=== PATIENT | male | born 1950 | race Caucasian/White ===

== ENCOUNTER 2020-11-16 07:55 | Outpatient (CLI) | payer MEDICARE, SELFPAY ==
[2020-11-16 08:53] LABS: Alanine Aminotransferase 39 U/L (16-63); Cholesterol 205 mg/dL (0-200); HDL Direct 59 mg/dL (40-60); LDL Cholesterol Calculated 107 mg/dL (<130); Triglycerides 193 mg/dL (0-150)
== END 2020-11-16 07:56 | disposition home or self-care (01) ==
PROVIDERS: PCP Internal Medicine; Visit Provider Family Medicine
DX: E78.5 Hyperlipidemia, unspecified (principal)
CPT/HCPCS: 36415; 80061; 84460

== ENCOUNTER 2021-04-06 07:04 | Outpatient (CLI) | payer MEDICARE, SELFPAY ==
[2021-04-06 07:24] LABS: Basophils Absolute Auto 0.07 K/mm3 (0.00-0.10); Basophils Percent Auto 1.5 % (0.0-1.0); Eosinophils Absolute Auto 0.33 K/mm3 (0.02-0.50); Hematocrit 44.8 % (37.0-46.0); Hemoglobin 15.4 g/dL (12.4-15.3); Immature Granulocyte Absolute 0.01 K/mm3 (0.00-0.00); Immature Granulocyte Percent A 0.2 % (0.0-0.0); Lymphocytes Absolute Auto 1.21 K/mm3 (1.10-4.50); Lymphocytes Percent Auto 25.6 % (18.0-42.0); Mean Corpuscular HGB Conc 34.4 g/dL (32.0-36.0); Mean Corpuscular Hemoglobin 32.6 pg (27.0-31.0); Mean Corpuscular Volume 94.7 fL (78.0-102.0); Mean Platelet Volume 10.4 fl (8.7-11.0); Monocytes Absolute Auto 0.55 K/mm3 (0.10-0.90); Monocytes Percent Auto 11.6 % (2.0-11.0); Neutrophils Absolute Auto 2.6 K/mm3 (1.7-7.2); Neutrophils Percent Auto 54.1 % (50.0-70.0); Platelet Count Result 205 K/mm3 (150-420); Red Blood Count 4.73 M/mm3 (4.70-6.10); Red Cell Distribution Width 12.9 % (11.6-14.4); White Blood Count 4.7 K/mm3 (4.8-10.8)
[2021-04-06 08:25] LABS: Alanine Aminotransferase 45 U/L (16-63); Albumin Level 4.4 g/dL (3.4-5.0); Alkaline Phosphatase 126 U/L (46-116); Anion Gap 8 mmol/L (8-16); Aspartate Amino Transferase 38 U/L (15-37); Bilirubin,Total 0.5 mg/dL (0.00-1.00); Blood Urea Nitrogen 12 mg/dL (7-18); Calcium 9.2 mg/dL (8.5-10.1); Carbon Dioxide 28 mmol/L (21-32); Chloride 104 mmol/L (98-108); Cholesterol 204 mg/dL (0-200); Estimated Glomerular Filt Rate > 60; Glucose 87 mg/dL (70-99); HDL Direct 51 mg/dL (40-60); LDL Cholesterol Calculated 109 mg/dL (<130); Osmolality Calculated 288 mOsm/kg (285-295); Potassium 4.1 mmol/L (3.5-5.1); Sodium 140 mmol/L (136-145); Thyroid Stimulating Hormone 3.66 uIU/mL (0.36-3.74); Total Protein 7.3 g/dL (6.4-8.2); Triglycerides 220 mg/dL (0-150); Uric Acid 4.3 mg/dL (3.5-7.2)
[2021-04-06 18:55] LABS: Prostate Specific Antigen 2.2 ng/mL (< OR = 4.0)
[2021-04-11 08:12] LABS: Ferritin 281 ng/mL (26-388); GGT 66 U/L (15-85)
[2021-04-13 14:45] LABS: Hepatitis A Antibody IgM Nonreactive; Hepatitis B Core Antibody Nonreactive (Nonreactive); Hepatitis B Surface Antigen Nonreactive (Nonreactive); Hepatitis C Signal to Cutoff 0.01 ratio (<1.00); Hepatitis C Virus Antibody Nonreactive (Nonreactive)
== END 2021-04-06 07:05 | disposition home or self-care (01) ==
LOC: CHSLAB 07:07
PROVIDERS: PCP Internal Medicine; Visit Provider Internal Medicine
DX: E78.5 Hyperlipidemia, unspecified (principal); M10.9 Gout, unspecified; Z12.5 Encounter for screening for malignant neoplasm of prostate; Z00.00 Encounter for general adult medical examination without abnormal findings; R74.9 Abnormal serum enzyme level, unspecified; R94.5 Abnormal results of liver function studies
CPT/HCPCS: 36415; 80053; 80061; 80074; 82728; 82977; 84153; 84443; 84550; 85025; G0103

== ENCOUNTER 2021-04-11 07:06 | Outpatient (CLI) | payer MEDICARE, SELFPAY ==
[2021-04-11 07:14] LABS: Appearance Urine Clear (Clear); Bilirubin Urine Negative (Negative); Blood Urine Negative (Negative); Color Urine Light Yellow (Yellow); Glucose Urine UA Negative (Negative); Ketones Urine Negative (Negative); Leukocyte Esterase Ur Negative (Negative); Nitrate Urine Negative (Negative); Protein Urine Negative (Negative); Urobilinogen Urine 0.2 mg/dL (0.2-1.0); pH Urine 5.5 (5.0-8.0)
[2021-04-11 07:15] LABS: Add Urine Microscopic? NO
== END 2021-04-11 07:07 | disposition home or self-care (01) ==
LOC: CHSLAB 07:08
PROVIDERS: PCP Internal Medicine; Visit Provider Internal Medicine
DX: E78.5 Hyperlipidemia, unspecified (principal); M10.9 Gout, unspecified; Z00.00 Encounter for general adult medical examination without abnormal findings
CPT/HCPCS: 81003

== ENCOUNTER 2021-10-29 07:00 | Outpatient (CLI) | payer MEDICARE, SELFPAY ==
[2021-10-29 07:55] LABS: Alanine Aminotransferase 46 U/L (16-63); Albumin Level 4.3 g/dL (3.4-5.0); Alkaline Phosphatase 138 U/L (46-116); Anion Gap 8 mmol/L (8-16); Aspartate Amino Transferase 31 U/L (15-37); Bilirubin,Total 0.5 mg/dL (0.00-1.00); Blood Urea Nitrogen 12 mg/dL (7-18); Calcium 9.1 mg/dL (8.5-10.1); Carbon Dioxide 29 mmol/L (21-32); Chloride 101 mmol/L (98-108); Cholesterol 157 mg/dL (0-200); Estimated Glomerular Filt Rate > 60; GGT 41 U/L (15-85); Glucose 102 mg/dL (70-99); HDL Direct 46 mg/dL (40-60); LDL Cholesterol Calculated 83 mg/dL (<130); Osmolality Calculated 285 mOsm/kg (285-295); Potassium 4.1 mmol/L (3.5-5.1); Sodium 138 mmol/L (136-145); Total Protein 7.1 g/dL (6.4-8.2); Triglycerides 142 mg/dL (0-150)
== END 2021-10-29 07:01 | disposition home or self-care (01) ==
LOC: CHSLAB 07:02
PROVIDERS: PCP Internal Medicine; Visit Provider Internal Medicine
DX: E78.5 Hyperlipidemia, unspecified (principal)
CPT/HCPCS: 36415; 80053; 80061; 82977

== ENCOUNTER 2021-10-29 16:24 | Emergency (ER) | payer MEDICARE, SELFPAY ==
--- NOTE | ~2021-10-29 | XR_ITS ---
EXAMINATION: XR ribs LT 2V DATE: 10/29/2021 16:59 INDICATION: Left rib pain. Fall. TECHNIQUE: 3 views of the left ribs were obtained. COMPARISON: None. FINDINGS: There is no left-sided pneumonia, pleural effusion, or pneumothorax. The heart size is norm al. There are fractures of left eighth-10th ribs. IMPRESSION: 1. Fractures of left eighth-10th ribs. Reviewed, dictated and finalized at location A.
[2021-10-29 16:35] VITALS: BP 163/87; PULSE 89; RESP 20; TEMP 36.6; O2SAT 100
--- NOTE | 2021-10-29 16:49 | ED.FALL ---
HPI - Fall General Chief Complaint: Fall Stated Complaint: rib, back pain Time Seen by Provider: 10/29/21 16:50 Source: patient Mode of arrival: ambulatory Limitations: no limitations History of Present Illness HPI Narrative: this is a 70-year-old gentleman with some history of hyperlipidemia presents after he was gathering gum balls from a tree and misstepped and fell off his deck causing injury to his left rib area with some mild swelling minimal bruising, the patient did take some Advil earlier prior to presenting to the ER, currently not short of breath no chest pain no abdominal pain no flank pain. complaint: fall Onset (ago): hour(s) Fall from: standing Fall witnessed: yes, by family Place fall occurred: home Loss of consciousness: none Prolonged down time: no Symptoms prior to fall: other ( slipped) Context: tripped/slipped Related Data Home Medications Medication Instructions Recorded Confirmed allopurinol 300 mg PO DAILY 10/29/21 10/29/21 atorvastatin 20 mg PO DAILY 10/29/21 10/29/21 Allergies Allergy/AdvReac Type Severity Reaction Status Date / Time No Known Allergies Allergy Unverified 10/29/21 16:44 Review of Systems Review of Systems: All systems reviewed & are unremarkable except as noted in HPI and below PMFSH Past Medical History Medical History HLD (hyperlipidemia) Exam Const: General: no acute distress Orientation/consciousness: patient oriented x3 HENMT: Head: normal to inspection Eyes: Conjunctivae: conjunctivae normal Pupils: Equal, round and reactive pupils present EOM: EOMs intact bilaterally Neck: Neck: normal visual inspection, no lymphadenopathy and no meningeal signs Chest: Chest palpation & inspection: normal inspection of the chest Resp: Effort & Inspection: normal respiratory effort Auscultation: clear to auscultation bilaterally Cardio: Rate: regular rate Rhythm: regular rhythm GI: Auscultation: normal bowel sounds : Male General Exam: Yes normal external exam Testes: Testes normal Urinary Catheter: Urinary Catheter: patent and draining Back/Spine/Pelvis: Back: no CVA tenderness Skin: General skin exam: normal color Rashes: no rashes Neuro: General: patient oriented x3, moves all extremities, no meningeal signs and no focal motor deficits Extrem: Other: left lower rib pain with palpation Psych: Mental Status: mental status grossly normal Affect: normal affect Course Course Emergency Course: patient received 60mg IM Toradol after reassessment pain level has improved, and x-ray of the left ribs were reviewed with patient and family. Vital Signs Vital signs: Vital Signs Temperature 36.6 C 10/29/21 16:35 Pulse Rate 89 10/29/21 16:35 Respiratory Rate 20 10/29/21 16:35 Blood Pressure 163/87 H 10/29/21 16:35 Pulse Oximetry 100 10/29/21 16:35 Temperature 36.6 C 10/29/21 16:35 Pulse Rate 89 10/29/21 16:35 Respiratory Rate 20 10/29/21 16:35 Blood Pressure 163/87 H 10/29/21 16:35 Pulse Oximetry 100 10/29/21 16:35 Critical Care Time Critical Care Time Critical Care Time: No Discharge Plan Discharge Clinical Impression: Multiple rib fractures Qualifiers: Encounter type: initial encounter Fracture type: closed Laterality: left Qualified Code(s): S22.42XA - Multiple fractures of ribs, left side, initial encounter for closed fracture Patient Disposition: Home, Self-Care Condition: Stable Instructions: Antibiotic Form, Rib Fracture (ED) Additional Instructions: take medicine as prescribed and follow-up primary care physician if symptoms persist or worsen. Prescriptions: New naproxen 500 mg tablet 500 mg PO BID Qty: 14 RF: 0 oxycodone-acetaminophen [Percocet] 5-325 mg tablet 1 tablet PO Q6H PRN (Reason: pain) Qty: 20 RF: 0 No Action atorvastatin 20 mg tablet 20 mg PO DAILY RF: 0 allopurinol 300 mg tablet 300 m
[2021-10-29] MEDS: KETOROLAC (*BKC) 60 MG/2 ML VIAL IM (16:50)
[2021-10-29 18:00] VITALS: BP 104/90; PULSE 103; RESP 20; TEMP 36.7; O2SAT 96
== END 2021-10-29 18:03 | disposition home or self-care (01) ==
PROVIDERS: Emergency Provider Emergency Medicine; PCP Internal Medicine
DX: S22.42XA Multiple fractures of ribs, left side, initial encounter for closed fracture (principal); W17.89XA Other fall from one level to another, initial encounter; E78.5 Hyperlipidemia, unspecified
CPT/HCPCS: 71100; 96372; 99284; J1885

== ENCOUNTER 2022-04-15 07:02 | Outpatient (CLI) | payer MEDICARE, SELFPAY ==
[2022-04-15 07:16] LABS: Basophils Absolute Auto 0.05 K/mm3 (0.00-0.10); Basophils Percent Auto 0.9 % (0.0-1.0); Eosinophils Absolute Auto 0.26 K/mm3 (0.02-0.50); Eosinophils Percent Auto 4.9 % (1.0-6.0); Hematocrit 42.7 % (37.0-46.0); Hemoglobin 14.3 g/dL (12.4-15.3); Immature Granulocyte Absolute 0.02 K/mm3 (0.00-0.00); Immature Granulocyte Percent A 0.4 % (0.0-0.0); Lymphocytes Absolute Auto 1.13 K/mm3 (1.10-4.50); Lymphocytes Percent Auto 21.2 % (18.0-42.0); Mean Corpuscular HGB Conc 33.5 g/dL (32.0-36.0); Mean Corpuscular Hemoglobin 32.2 pg (27.0-31.0); Mean Corpuscular Volume 96.2 fL (78.0-102.0); Mean Platelet Volume 10.9 fl (8.7-11.0); Monocytes Percent Auto 11.3 % (2.0-11.0); Neutrophils Absolute Auto 3.3 K/mm3 (1.7-7.2); Neutrophils Percent Auto 61.3 % (50.0-70.0); Platelet Count Result 179 K/mm3 (150-420); Red Blood Count 4.44 M/mm3 (4.70-6.10); Red Cell Distribution Width 13.2 % (11.6-14.4); White Blood Count 5.3 K/mm3 (4.8-10.8)
[2022-04-15 07:17] LABS: Add Urine Microscopic? NO; Appearance Urine Clear (Clear); Bilirubin Urine Negative (Negative); Blood Urine Negative (Negative); Color Urine Light Yellow (Yellow); Glucose Urine UA Negative (Negative); Ketones Urine Negative (Negative); Leukocyte Esterase Ur Negative (Negative); Nitrate Urine Negative (Negative); Protein Urine Negative (Negative); Specific Grav Ur >= 1.030 (1.010-1.020); Urobilinogen Urine 0.2 mg/dL (0.2-1.0); pH Urine 5.5 (5.0-8.0)
[2022-04-15 08:12] LABS: Alanine Aminotransferase 30 U/L (16-63); Albumin Level 3.9 g/dL (3.4-5.0); Alkaline Phosphatase 135 U/L (46-116); Anion Gap 5 mmol/L (8-16); Aspartate Amino Transferase 27 U/L (15-37); Bilirubin,Total 0.4 mg/dL (0.00-1.00); Blood Urea Nitrogen 11 mg/dL (7-18); Calcium 8.8 mg/dL (8.5-10.1); Carbon Dioxide 30 mmol/L (21-32); Chloride 106 mmol/L (98-108); Cholesterol 132 mg/dL (0-200); Estimated Glomerular Filt Rate > 60; Glucose 103 mg/dL (70-99); HDL Direct 48 mg/dL (40-60); LDL Cholesterol Calculated 65 mg/dL (<130); Osmolality Calculated 291 mOsm/kg (285-295); Potassium 4.3 mmol/L (3.5-5.1); Prostate Specific Antigen 1.9 ng/mL (< OR = 4.0); Sodium 141 mmol/L (136-145); Thyroid Stimulating Hormone 3.81 uIU/mL (0.36-3.74); Total Protein 6.8 g/dL (6.4-8.2); Triglycerides 93 mg/dL (0-150)
== END 2022-04-15 07:03 | disposition home or self-care (01) ==
LOC: CHSLAB 07:04
PROVIDERS: PCP Internal Medicine; Visit Provider Internal Medicine
DX: E78.5 Hyperlipidemia, unspecified (principal); M10.9 Gout, unspecified; Z12.5 Encounter for screening for malignant neoplasm of prostate; Z00.00 Encounter for general adult medical examination without abnormal findings
CPT/HCPCS: 36415; 80053; 80061; 81003; 84153; 84443; 85025; G0103

== ENCOUNTER 2022-10-24 07:10 | Outpatient (CLI) | payer MEDICARE, SELFPAY ==
[2022-10-24 07:30] LABS: Hemoglobin A1C 5.6 % (<5.7)
[2022-10-24 08:23] LABS: Alanine Aminotransferase 46 U/L (16-63); Albumin Level 4.3 g/dL (3.4-5.0); Alkaline Phosphatase 133 U/L (46-116); Anion Gap 7 mmol/L (8-16); Aspartate Amino Transferase 34 U/L (15-37); Bilirubin,Total 0.7 mg/dL (0.00-1.00); Blood Urea Nitrogen 15 mg/dL (7-18); Calcium 9.3 mg/dL (8.5-10.1); Carbon Dioxide 32 mmol/L (21-32); Chloride 105 mmol/L (98-108); Cholesterol 148 mg/dL (0-200); Estimated Glomerular Filt Rate > 60; Free T4 Free Thyroxine 0.86 ng/dL (0.76-1.46); Glucose 95 mg/dL (70-99); HDL Direct 52 mg/dL (40-60); LDL Cholesterol Calculated 86 mg/dL (<130); Osmolality Calculated 298 mOsm/kg (285-295); Potassium 4.7 mmol/L (3.5-5.1); Sodium 144 mmol/L (136-145); Thyroid Stimulating Hormone 2.64 uIU/mL (0.36-3.74); Total Protein 7.2 g/dL (6.4-8.2); Triglycerides 50 mg/dL (0-150)
== END 2022-10-24 07:11 | disposition home or self-care (01) ==
LOC: CHSLAB 07:12
PROVIDERS: PCP Internal Medicine; Visit Provider Internal Medicine
DX: E78.5 Hyperlipidemia, unspecified (principal); R73.9 Hyperglycemia, unspecified; R97.8 Other abnormal tumor markers
CPT/HCPCS: 36415; 80053; 80061; 83036; 84439; 84443; 84481

== ENCOUNTER 2023-04-29 07:11 | Outpatient (CLI) | payer MEDICARE, SELFPAY ==
[2023-04-29 07:28] LABS: Basophils Absolute Auto 0.04 K/mm3 (0.00-0.10); Basophils Percent Auto 0.8 % (0.0-1.0); Eosinophils Percent Auto 3.8 % (1.0-6.0); Hematocrit 41.6 % (37.0-46.0); Hemoglobin 14.3 g/dL (12.4-15.3); Immature Granulocyte Absolute 0.01 K/mm3 (0.00-0.00); Immature Granulocyte Percent A 0.2 % (0.0-0.0); Lymphocytes Absolute Auto 1.18 K/mm3 (1.10-4.50); Lymphocytes Percent Auto 22.6 % (18.0-42.0); Mean Corpuscular HGB Conc 34.4 g/dL (32.0-36.0); Mean Corpuscular Hemoglobin 32.2 pg (27.0-31.0); Mean Corpuscular Volume 93.7 fL (78.0-102.0); Mean Platelet Volume 10.9 fl (8.7-11.0); Monocytes Absolute Auto 0.47 K/mm3 (0.10-0.90); Neutrophils Absolute Auto 3.3 K/mm3 (1.7-7.2); Neutrophils Percent Auto 63.6 % (50.0-70.0); Platelet Count Result 216 K/mm3 (150-420); Red Blood Count 4.44 M/mm3 (4.70-6.10); White Blood Count 5.2 K/mm3 (4.8-10.8)
[2023-04-29 08:11] LABS: Alanine Aminotransferase 43 U/L (16-63); Albumin Level 3.9 g/dL (3.4-5.0); Alkaline Phosphatase 134 U/L (46-116); Anion Gap 6 mmol/L (8-16); Aspartate Amino Transferase 32 U/L (15-37); Bilirubin,Total 0.6 mg/dL (0.00-1.00); Blood Urea Nitrogen 11 mg/dL (7-18); Calcium 9.3 mg/dL (8.5-10.1); Carbon Dioxide 30 mmol/L (21-32); Chloride 107 mmol/L (98-108); Cholesterol 136 mg/dL (0-200); Estimated Glomerular Filt Rate > 60; Glucose 98 mg/dL (70-99); HDL Direct 49 mg/dL (40-60); LDL Cholesterol Calculated 71 mg/dL (<130); Osmolality Calculated 295 mOsm/kg (285-295); Potassium 4.3 mmol/L (3.5-5.1); Sodium 143 mmol/L (136-145); Total Protein 6.4 g/dL (6.4-8.2); Triglycerides 80 mg/dL (0-150); Uric Acid 3.9 mg/dL (3.5-7.2)
== END 2023-04-29 07:12 | disposition home or self-care (01) ==
LOC: CHSLAB 07:13
PROVIDERS: PCP Internal Medicine; Visit Provider Internal Medicine
DX: E78.5 Hyperlipidemia, unspecified (principal); M10.9 Gout, unspecified; Z12.5 Encounter for screening for malignant neoplasm of prostate
CPT/HCPCS: 36415; 80053; 80061; 84153; 84550; 85025; G0103

== ENCOUNTER 2023-04-30 07:07 | Outpatient (CLI) | payer MEDICARE, SELFPAY ==
[2023-04-30 07:16] LABS: Appearance Urine Clear (Clear); Bilirubin Urine Negative (Negative); Blood Urine Trace-Intact (Negative); Color Urine Light Yellow (Yellow); Glucose Urine UA Negative (Negative); Ketones Urine Negative (Negative); Leukocyte Esterase Ur Negative (Negative); Nitrate Urine Negative (Negative); Protein Urine Negative (Negative); Specific Grav Ur 1.015 (1.010-1.020); Urobilinogen Urine 0.2 mg/dL (0.2-1.0)
[2023-04-30 07:21] LABS: Add Urine Microscopic? YES; RBC Urine 0-2 /hpf (0-2); WBC Urine None seen /hpf (0-3)
[2023-04-30 07:22] LABS: Bacteria Urine Rare /hpf
== END 2023-04-30 07:08 | disposition home or self-care (01) ==
LOC: CHSLAB 07:09
PROVIDERS: PCP Internal Medicine; Visit Provider Internal Medicine
DX: E78.5 Hyperlipidemia, unspecified (principal); M10.9 Gout, unspecified
CPT/HCPCS: 81001

== ENCOUNTER 2024-04-28 07:10 | Outpatient (CLI) | payer MEDICARE, SELFPAY ==
[2024-04-28 07:31] LABS: Add Urine Microscopic? NO; Appearance Urine Clear (Clear); Basophils Absolute Auto 0.05 K/mm3 (0.00-0.10); Basophils Percent Auto 0.8 % (0.0-1.0); Bilirubin Urine Negative (Negative); Blood Urine Negative (Negative); Color Urine Light Yellow (Yellow); Eosinophils Absolute Auto 0.23 K/mm3 (0.02-0.50); Eosinophils Percent Auto 3.8 % (1.0-6.0); Glucose Urine UA Negative (Negative); Hematocrit 44.3 % (37.0-46.0); Hemoglobin 14.9 g/dL (12.4-15.3); Immature Granulocyte Absolute 0.02 K/mm3 (0.00-0.00); Immature Granulocyte Percent A 0.3 % (0.0-0.0); Ketones Urine Negative (Negative); Leukocyte Esterase Ur Negative (Negative); Lymphocytes Absolute Auto 1.19 K/mm3 (1.10-4.50); Lymphocytes Percent Auto 19.7 % (18.0-42.0); Mean Corpuscular HGB Conc 33.6 g/dL (32-36); Mean Corpuscular Hemoglobin 31.4 pg (27.0-31.0); Mean Corpuscular Volume 93.5 fL (78.0-102.0); Mean Platelet Volume 10.5 fl (8.7-11.0); Monocytes Absolute Auto 0.59 K/mm3 (0.10-0.90); Monocytes Percent Auto 9.8 % (2.0-11.0); Neutrophils Absolute Auto 3.96 K/mm3 (1.70-7.20); Neutrophils Percent Auto 65.6 % (50.0-70.0); Nitrate Urine Negative (Negative); Platelet Count Result 220 K/mm3 (150-420); Protein Urine Negative (Negative); Red Blood Count 4.74 M/mm3 (4.70-6.10); Red Cell Distribution Width 13.3 % (11.6-14.4); Urobilinogen Urine 0.2 mg/dL (0.2-1.0)
[2024-04-28 08:21] LABS: Alanine Aminotransferase 43 U/L (16-63); Albumin Level 3.9 g/dL (3.4-5.0); Alkaline Phosphatase 149 U/L (46-116); Anion Gap 5 mmol/L (4-12); Aspartate Amino Transferase 34 U/L (15-37); Bilirubin,Total 0.5 mg/dL (0.00-1.00); Blood Urea Nitrogen 10 mg/dL (7-18); Carbon Dioxide 33 mmol/L (21-32); Chloride 103 mmol/L (98-108); Cholesterol 147 mg/dL (0-200); Estimated Glomerular Filt Rate > 60; Glucose 87 mg/dL (70-99); HDL Direct 47 mg/dL (40-60); LDL Cholesterol Calculated 78 mg/dL (<130); Osmolality Calculated 290 mOsm/kg (285-295); Potassium 4.7 mmol/L (3.5-5.1); Prostate Specific Antigen 2.5 ng/mL (< OR = 4.0); Sodium 141 mmol/L (136-145); Thyroid Stimulating Hormone 3.44 uIU/mL (0.36-3.74); Total Protein 6.8 g/dL (6.4-8.2); Triglycerides 112 mg/dL (0-150)
== END 2024-04-28 07:11 | disposition home or self-care (01) ==
PROVIDERS: PCP Internal Medicine; Visit Provider Internal Medicine
DX: E78.5 Hyperlipidemia, unspecified (principal); M10.9 Gout, unspecified; Z12.5 Encounter for screening for malignant neoplasm of prostate
CPT/HCPCS: 36415; 80053; 80061; 81003; 84153; 84443; 85025; G0103

== ENCOUNTER 2024-05-10 07:14 | Outpatient (CLI) | payer MEDICARE, SELFPAY ==
[2024-05-10 08:20] LABS: Alanine Aminotransferase 37 U/L (16-63); Alkaline Phosphatase 162 U/L (46-116); Anion Gap 4 mmol/L (4-12); Aspartate Amino Transferase 25 U/L (15-37); Bilirubin,Total 0.8 mg/dL (0.00-1.00); Blood Urea Nitrogen 11 mg/dL (7-18); Carbon Dioxide 33 mmol/L (21-32); Chloride 104 mmol/L (98-108); Estimated Glomerular Filt Rate > 60; Glucose 95 mg/dL (70-99); Osmolality Calculated 291 mOsm/kg (285-295); Potassium 4.1 mmol/L (3.5-5.1); Sodium 141 mmol/L (136-145); Total Protein 6.8 g/dL (6.4-8.2)
[2024-05-11 11:43] LABS: Hepatitis B Surface Antigen NON-REACTIVE (NON-REACTIVE)
[2024-05-11 11:55] LABS: Hepatitis A Antibody IgM NON-REACTIVE (NON-REACTIVE); Hepatitis B Core Antibody NON-REACTIVE (NON-REACTIVE)
[2024-05-11 12:54] LABS: Hepatitis C Virus Antibody NON-REACTIVE (NON-REACTIVE)
[2024-05-11 15:28] LABS: Ferritin 341 ng/mL (26-388); GGT 34 U/L (15-85)
[2024-05-20 16:32] LABS: Alkaline Phosphatase 142 U/L (35-144)
== END 2024-05-10 07:15 | disposition home or self-care (01) ==
LOC: CHSLAB 07:16
PROVIDERS: PCP Internal Medicine; Visit Provider Internal Medicine
DX: M10.9 Gout, unspecified (principal); R94.5 Abnormal results of liver function studies; D64.9 Anemia, unspecified; Z79.899 Other long term (current) drug therapy
CPT/HCPCS: 36415; 80053; 80074; 82728; 82977; 84075; 84080; 84550

== ENCOUNTER 2024-05-11 07:05 | Outpatient (CLI) | payer MEDICARE, SELFPAY ==
--- NOTE | ~2024-05-11 | US_ITS ---
Limited Abdominal Sonogram: Real-time sonographic imaging of the right upper quadrant was performed. Clinical History: Abnormal LFTs Findings: The liver appears normal with no evidence of mass lesion or bile duct dilatation. Main por elier vein demonstrates normal direction of flow. The gallbladder is well distended, and demonstrates s everal tiny gallbladder wall polyps. The common bile duct measures 2 mm. The visualized pancreas, ao rta, and IVC are unremarkable. Largest right renal cyst measures 9.6 cm in June. Impression: Several tiny gallbladder wall polyps. Reviewed, dictated and finalized at location M. Impression: Several tiny gallbladder wall polyps.
== END 2024-05-11 07:06 | disposition home or self-care (01) ==
LOC: CHSIMG 07:06
PROVIDERS: PCP Internal Medicine; Visit Provider Internal Medicine
DX: R94.5 Abnormal results of liver function studies (principal); M10.9 Gout, unspecified; K82.4 Cholesterolosis of gallbladder; N28.1 Cyst of kidney, acquired
CPT/HCPCS: 76705

== ENCOUNTER 2024-11-01 07:42 | Outpatient (CLI) | payer MEDICARE, SELFPAY ==
--- NOTE | 2024-11-01 07:49 | EST_ITS ---
Patient Info Name: Anatoly Sue Age: 73 years : 1950 Gender: Male Ht: 71 in Wt: 178 lbs BSA: 2.02 m2 HR: 57 bpm BP: 144 / 80 mmHg Heart Rhythm: Bradycardia, Sinus Rhythm Technical Quality: Good Exam Date: 11/01/2024 8:52 AM Exam Location: Echo Lab Patient Status: Outpatient Admit Date: 11/01/2024 Staff Ordering Physician: Vero Carrasquillo Attending Provider: Vero Carrasquillo Exam Type: CA stress adrien w NM Study Info A regadenoson stress test was performed. History/Risk Factors Dyslipidemia: Yes Summary 1. 1. Negative lexiscan stress test for ischemic ST changes by ECG criteria. 2. 2. Baseline hypertension. 3. 3. 3. Nuclear scan to follow and will be reported separately. Please correlate with it. Protocol: LEXISCAN Stress ECG Details Stage: REST Duration (min): 3 min : 26 sec HR (bpm): 58 SBP (mmHg): 144 DBP (mmHg): 80 Stage: REST Duration (min): 14 min : 44 sec HR (bpm): 57 SBP (mmHg): 144 DBP (mmHg): 80 Stage: STAGE 1 Duration (min): 0 min : 25 sec HR (bpm): 57 SBP (mmHg): 144 DBP (mmHg): 80 Stage: RECOVERY Duration (min): 0 min : 34 sec HR (bpm): 76 SBP (mmHg): 144 DBP (mmHg): 80 Stage: RECOVERY Duration (min): 1 min : 34 sec HR (bpm): 97 SBP (mmHg): 144 DBP (mmHg): 80 Stage: RECOVERY Duration (min): 2 min : 34 sec HR (bpm): 93 SBP (mmHg): 157 DBP (mmHg): 81 Stage: RECOVERY Duration (min): 3 min : 34 sec HR (bpm): 86 SBP (mmHg): 157 DBP (mmHg): 81 Stage: RECOVERY Duration (min): 4 min : 34 sec HR (bpm): 82 SBP (mmHg): 151 DBP (mmHg): 81 Stage: RECOVERY Duration (min): 5 min : 34 sec HR (bpm): 75 SBP (mmHg): 156 DBP (mmHg): 91 Stage: RECOVERY Duration (min): 6 min : 4 sec HR (bpm): 74 SBP (mmHg): 153 DBP (mmHg): 94 Rest HR: 57 bpm Peak HR: 102 bpm Rest Sys BP: 144 mmHg Peak Sys BP: 157 mmHg Max Pred HR: 148 bpm % Max Pred HR: 69 % Target HR: 126 bpm Max RPP: 16,014 bpm*mmHg BP Response: Normal blood pressure response Termination Reason: Completed Protocol Cardiac Symptoms: None Total Time: 0 min : 25 sec Rest Lee BP: 80 mmHg Peak Lee BP: 81 mmHg Total Dose: 0.4 mg Resting ECG Sinus bradycardia, anteroseptal infarct, age indeterminate. Stress ECG No abnormal ST/T wave changes. Arrhythmias No arrhythmias were observed during the examination. Report Signatures
--- NOTE | 2024-11-01 13:30 | WPDCARIOSTRE ---
Nuclear Stress Test INDICATIONS Indications: CAD PROCEDURE Procedure Performed: Myocardial Perf Spect-Multi Procedure: Patient underwent a lexiscan stress test and immediately was injected with 31.8 mCi of cardiolyte. Multiple tomographic images were obtained. These are of good quality. There is a small size, mild apical perfusion defect with stress imaging. A separate resting images were obtained after patient was injected with 10.2 mCi of cardiolyte. Multiple tomographic images were obtained. These are of good quality. There is a small size, mild apical perfusion defect with rest imaging. CONCLUSION Conclusion: 1. Myocardial perfusion imaging demonstrating a fixed small size apical perfusion defect which is suggestive of attenuation artifact. 2. No evidence of reversible ischemia. 3. Left ventriculogram demonstrates normal measured ejection fraction of 69% with no wall motion abnormalities. 4. TID score 0.94 is normal.
== END 2024-11-01 07:43 | disposition home or self-care (01) ==
LOC: CHSIMG 07:45
PROVIDERS: PCP Internal Medicine
DX: I25.10 Atherosclerotic heart disease of native coronary artery without angina pectoris (principal)
CPT/HCPCS: 78452; 93017; A9502; J2785

== ENCOUNTER 2024-12-02 07:44 | Outpatient (CLI) | payer MEDICARE, SELFPAY ==
--- NOTE | ~2024-12-02 | CT_ITS ---
CT Scan of the Chest without Contrast: Clinical Indication: Pulmonary nodule Technique: Contiguous sections were acquired throughout the chest without intravenous contrast. Dose reduction technique was used on this scan by utilizing automated exposure control and iterative recon struction technique. The dose-length product (DLP) was 263.87 mGy-cm. Findings: There is no evidence of any significant mediastinal, hilar or axillary lymphadenopathy. Small calcifi ed right hilar lymph nodes are present. Extensive coronary artery calcifications are present. There is no evidence of pleural or pericardial effusion. Calcified right middle lobe granuloma present. Calcified left lower lobe granuloma present. Images through the upper abdomen reveal tiny calcified gallstone. Impression: Evidence of prior granulomatous disease. No suspicious pulmonary nodule. Reviewed, dictated and finalized at [facility]. Impression: Evidence of prior granulomatous disease. No suspicious pulmonary nodule.
== END 2024-12-02 07:45 | disposition home or self-care (01) ==
LOC: CHSIMG 07:47
PROVIDERS: PCP Internal Medicine
DX: R91.1 Solitary pulmonary nodule (principal)
CPT/HCPCS: 71250

== ENCOUNTER 2025-01-11 13:37 | Outpatient (CLI) | payer MEDICARE, SELFPAY ==
--- NOTE | 2025-01-11 13:40 | ECHO_ITS ---
Patient Info Name: Anatoly Sue Age: 74 years : 1950 Gender: Male Ht: 70 in Wt: 180 lbs BSA: 2.02 m2 HR: 71 bpm BP: 152 / 134 mmHg Technical Quality: Good Exam Date: 01/11/2025 1:54 PM Patient Status: O Admit Date: 01/11/2025 Exam Type: CA echo doppler color flow Complete two-dimensional, color flow and Doppler transthoracic echocardiogram is performed. Helix Coil Winder: Jen Gipson Attending Provider: Kilo Gustafson DO Summary 1. Complete two-dimensional, color flow and Doppler transthoracic echocardiogram is performed. 2. Left ventricular chamber dimension is normal. 3. Left ventricular systolic function is normal, estimated at 65-70. 4. The left ventricular diastolic function is grade I diastolic dysfunction. 5. E/e' 15 is elevated. 6. Left atrial chamber dimension is mildly enlarged. 7. There is mild aortic valve sclerosis. 8. There is trace aortic valve regurgitation. 9. The mitral valve has moderately calcified leaflets. 10. There is mild mitral valve regurgitation. 11. There is trace tricuspid valve regurgitation. 12. There is trace pulmonic regurgitation. Left Ventricle E/e' 15 is elevated. Left ventricular chamber dimension is normal. Left ventricular systolic function is normal, estimated at 65-70. The left ventricular diastolic function is grade I diastolic dysfunction. Right Ventricle Right ventricular chamber dimension is normal. Right ventricular systolic function is normal and with normal TAPSE 2.4 cm. Left Atria Left atrial chamber dimension is mildly enlarged. Right Atria Right atrial chamber dimension is normal. Aortic Valve The aortic valve is trileaflet. There is mild aortic valve sclerosis. There is no aortic valve stenosis. There is trace aortic valve regurgitation. Pulmonic Valve There is trace pulmonic regurgitation. Mitral Valve The mitral valve has moderately calcified leaflets. There is no mitral valve stenosis. There is mild mitral valve regurgitation. Tricuspid Valve There is trace tricuspid valve regurgitation. No pulmonary hypertension, estimated pulmonary arterial systolic pressure is 11 mmHg. Pericardium/Pleural There is no pericardial effusion. Inferior Vena Cava Normal inferior vena cava with >50% collapse upon inspiration consistent with normal right atrial pressure, 5 mmHg. Aorta The aortic root size at the sinus of Valsalva is normal. Left Ventricular Outflow Tract Name Value Normal LVOT 2D LVOT Diameter 1.9 cm Pulmonic Valve Name Value Normal PV Doppler PV Peak Velocity 123 cm/s PV Peak Gradient 6 mmHg PV Regurgitation Doppler UT Peak End Diastolic Velocity 69 cm/s Mitral Valve Name Value Normal MV Doppler MV Peak Gradient 7 mmHg MV Mean Gradient 3 mmHg MV Regurgitation Doppler MR Peak Gradient 105 mmHg MV Diastolic Function MV E Peak Velocity 114 cm/s MV A Peak Velocity 131 cm/s MV E/A 0.9 MV Decel Time (PW) 289 ms MV Annular TDI MV E/e' (Septal) 14.7 MV E/e' (Lateral) 16.5 MV E/e' (Average) 15.6 Tricuspid Valve Name Value Normal TV Regurgitation Doppler TR Peak Velocity 120 cm/s TR Peak Gradient 6 mmHg Estimated PAP/RSVP RA Pressure 5 mmHg <=5 PA Systolic Pressure 11 mmHg <36 RV Systolic Pressure 11 mmHg <36 TV Annular TDI TV Lateral Kristi s' Velocity 12.3 cm/s >=9.5 Aortic Valve Name Value Normal AV Doppler AV Peak Velocity 150 cm/s AV Peak Gradient 9 mmHg AV Mean Gradient 5 mmHg AV VTI 29 cm AV Regurgitation 2D LVOT Area 2.7 cm2 Ventricles Name Value Normal LV Dimensions 2D/MM IVS Diastolic Thickness (2D) 0.9 cm 0.6-1.0 LVID Diastole (2D) 4.5 cm 4.2-5.8 LVIW Diastolic Thickness (2D) 0.8 cm 0.6-1.0 LVID Systole (2D) 3.2 cm 2.5-4.0 LVOT Diameter 1.9 cm LV Mass (2D Cubed) 125.99 g 88.00-224.00 LV Mass Index (2D Cubed) 62 g/m2 49-115 Relative Wall Thickness (2D) 0.38 <=0.42 LV Fractional Shortening/Ejection Fraction 2D/MM LV Fractional Shortening (2D) 29 % 25-43 LV EF (2D Teichholz) 55 % LV Diastolic Volume (4C MOD) 97 ml LV EF (4C MOD) 62 % LV Diastolic Volume (2C MOD) 98 ml LV EF (2C MOD) 74 % LV Diastolic Volume (BP MOD) 101 ml 62-150 LV Diastolic Volume Index (BP MOD) 50 ml/m2 34-74 LV Systolic Volume (BP MOD) 31 ml 21-61 LV Systolic Volume Index (BP MOD) 15 ml/m2 11-31 LV EF (BP MOD) 69 % 52-72 LV Diastolic Length (4C) 7.7 cm LV Systolic Length (4C) 6.2 cm LV Stroke Volume (4C MOD) 60 ml Atria Name Value Normal LA Dimensions LA Volume (4C A-L) 37 ml LA Volume (BP A-L) 39 ml RA Dimensions RA Systolic Major [place] Length (4C) 5.6 cm 2.1-2.7 RA Area (4C) 16.0 cm2 <=18.0 Report Signatures
== END 2025-01-11 13:38 | disposition home or self-care (01) ==
PROVIDERS: PCP Internal Medicine; Visit Provider Internal Medicine Cardiovascular Disease
DX: E78.5 Hyperlipidemia, unspecified (principal); I08.0 Rheumatic disorders of both mitral and aortic valves
CPT/HCPCS: 93306

== ENCOUNTER 2025-05-02 07:25 | Outpatient (CLI) | payer MEDICARE, SELFPAY ==
[2025-05-02 07:58] LABS: Hematocrit 46.3 % (37.0-46.0); Hemoglobin 15.1 g/dL (12.4-15.3); Mean Corpuscular HGB Conc 32.6 g/dL (32-36); Mean Corpuscular Hemoglobin 30.8 pg (27.0-31.0); Mean Corpuscular Volume 94.3 fL (78.0-102.0); Platelet Count Result 192 K/mm3 (150-420); Red Blood Count 4.91 M/mm3 (4.70-6.10); White Blood Count 6.4 K/mm3 (4.8-10.8)
[2025-05-02 08:33] LABS: Alanine Aminotransferase 46 U/L (6-50); Albumin Level 5.1 g/dL (3.5-5.1); Alkaline Phosphatase 148 U/L (38-126); Anion Gap 11 mmol/L (4-12); Aspartate Amino Transferase 64 U/L (17-59); Bilirubin,Total 0.9 mg/dL (0.2-1.3); Blood Urea Nitrogen 15 mg/dL (9-20); Calcium 10.1 mg/dL (8.4-10.2); Carbon Dioxide 30 mmol/L (22-30); Chloride 101 mmol/L (98-107); Cholesterol 168 mg/dL (0-200); Estimated Glomerular Filt Rate > 60; Glucose 94 mg/dL (65-110); HDL Direct 60 mg/dL; Osmolality Calculated 294 mOsm/kg (285-295); Potassium 5.0 mmol/L (3.4-5.0); Sodium 142 mmol/L (137-145); Total Protein 8.6 g/dL (6.3-8.2); Triglycerides 83 mg/dL (<150)
[2025-05-02 09:03] LABS: Prostate Specific Antigen 2.3 ng/mL (< OR = 4.0); Thyroid Stimulating Hormone 3.630 uIU/mL (0.465-4.680)
[2025-05-02 09:09] LABS: Add Urine Microscopic? NO; Appearance Urine Clear (Clear); Glucose Urine UA Negative (Negative); Leukocyte Esterase Ur Negative (Negative); Nitrate Urine Negative (Negative); Specific Grav Ur 1.010 (1.010-1.020)
== END 2025-05-02 07:26 | disposition home or self-care (01) ==
LOC: CHSLAB 07:28
PROVIDERS: PCP Internal Medicine; Visit Provider Internal Medicine
DX: Z12.5 Encounter for screening for malignant neoplasm of prostate (principal); E78.5 Hyperlipidemia, unspecified; R79.89 Other specified abnormal findings of blood chemistry
CPT/HCPCS: 36415; 80053; 80061; 81003; 84153; 84443; 85027; G0103